=== PATIENT | female | born 1955 | race Caucasian/White ===

== ENCOUNTER 2018-02-20 02:41 | Inpatient (IN) | payer MEDICAID ==
[2018-02-20] MEDS ORDERED: methylPREDNISolone Sodium Succinate 125 MG/2 ML SDV IVPUSH ONE (02:49)
[2018-02-20] MEDS ORDERED: Albuterol/Ipratropium 3.0-0.5 MG/3 ML Neb Soln NEB ONE (02:49)
--- NOTE | 2018-02-20 02:57 | EDM.PDOC ---
ED HPI GENERAL MEDICAL PROBLEM - General Chief Complaint: Respiratory Problem Stated Complaint: CAN'T BREATH Time Seen by Provider: 02/20/18 02:41 Source of Information: Reports: Patient History Limitations: Reports: No Limitations - History of Present Illness INITIAL COMMENTS - FREE TEXT/NARRATIVE: 62-year-old female with oxygen-dependent COPD, was seen a week ago with "bronchitis" and started on an antibiotic. She stopped smoking 12 days ago. She' s had no fevers or chills, she's had worsening shortness of breath and wheezing despite the antibiotic. She is not on any steroids. Nasal cannula oxygen does help but she cannot do anything without oxygen and is short of breath even with the oxygen which is much worse than her baseline. She has marked audible wheezing and moderate increased respiratory rate. She arrived to the emergency room with an O2 saturation of 79% on room air. She has a persistent very tight cough. It is nonproductive. Onset: Gradual (Over the past couple weeks) Severity: Severe Associated Symptoms: Reports: Cough, Shortness of Breath. 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 (see below) (She has inhalers at home, also has been on an antibiotic) - Related Data Allergies Allergy/AdvReac Type Severity Reaction Status Date / Time No Known Allergies Allergy Verified 02/20/18 02:47 Home Meds: Home Meds Albuterol [Ventolin HFA] 1 - 2 puff INH QID 09/14/13 [History] FLUoxetine HCl [Fluoxetine] 40 mg PO DAILY 11/10/13 [History] Acetaminophen [Acetaminophen 8 Hour] 650 mg PO Q6HR PRN 04/03/14 [History] Cyclobenzaprine [Flexeril] 10 mg PO TID PRN 04/03/14 [History] Albuterol/Ipratropium [Combivent] 1 puff INH Q6H PRN 10/02/17 [History] Albuterol/Ipratropium [DuoNeb 3.0-0.5 MG/3 ML] 3 ml INH Q4H PRN 10/02/17 [ History] Fluticasone/Vilanterol [Breo Ellipta 100-25 MCG Inhalation Kit] 1 puff INH DAILY 10/02/17 [History] Gabapentin [Neurontin] 1 cap PO BEDTIME 10/02/17 [History] Ibuprofen [Motrin] 1 tab PO Q6H PRN 10/02/17 [History] Lutein 1 tab PO DAILY 10/02/17 [History] Nicotine [Nicotrol] 1 puff INH Q2HR 10/02/17 [History] Ranitidine [Zantac] 1 tab PO BID 10/02/17 [History] SUMAtriptan [Imitrex] 1 tab PO ASDIRECTED PRN 10/02/17 [History] atorvaSTATin [Lipitor] 1 tab PO BEDTIME 10/02/17 [History] buPROPion [Wellbutrin XL] 1 tab PO DAILY 10/02/17 [History] Amoxicillin 875 mg PO BID 02/20/18 [History] ED ROS GENERAL - Review of Systems Review Of Systems: See Below Constitutional: Reports: Malaise, Weakness. Denies: Fever, Chills HEENT: Reports: No Symptoms Respiratory: Reports: Shortness of Breath, Cough. Denies: Sputum Cardiovascular: Denies: Chest Pain GI/Abdominal: Denies: Abdominal Pain, Nausea, Vomiting Skin: Reports: No Symptoms Neurological: Reports: No Symptoms. Denies: Headache Psychiatric: Reports: No Symptoms ED EXAM, GENERAL - Physical Exam Exam: See Below Exam Limited By: No Limitations General Appearance: Alert, Moderate Distress Head: Atraumatic Respiratory/Chest: Respiratory Distress (Moderate respiratory distress), Wheezing (Widespread inspiratory and expiratory wheezes) Cardiovascular: Regular Rate, Rhythm Extremities: No: Pedal Edema Neurological: Alert, Oriented Psychiatric: Normal Affect, Normal Mood Skin Exam: Warm, Dry Course - Vital Signs Last Recorded V/S: Last Vital Signs Temp 97.0 F 02/20/18 15:54 Pulse 103 H 02/20/18 15:54 Resp 16 02/20/18 15:54 BP 118/67 02/20/18 15:54 Pulse Ox 93 L 02/20/18 15:54 - Orders/Labs/Meds Orders: Active Orders 24 hr Category Date Time Status RT Aerosol Therapy [RC] ASDIRECTED Care 02/20/18 02:49 Active CULTURE RESPIRATORY + SMEAR [RM] Stat Lab 02/20/18 03:38 Ordered Medication Orders Acetaminophen (Tylenol) 650 mg PO Q4H PRN PRN Reason: Pain (Mild 1-3)/fever Albuterol (Proventil Neb Soln) 2.5 mg NEB Q4H PRN PRN Reason: Shortness Of Breath/wheezing Albuterol/Ipratropium (Duoneb 3.0-0.5 Mg/3 Ml) 3 ml NEB QIDRT [facility] Last Admin: 02/20/18 14:47 Dose: 3 ml Admin: 02/20/18 10:47 Dose: 3 ml Admin: 02/20/18 07:43 Dose: 3 ml Atorvastatin Calcium (Lipitor) 10 mg PO BEDTIME [facility] Benzonatate (Tessalon Perles) 200 mg PO TID PRN PRN Reason: Cough Last Admin: 02/20/18 15:55 Dose: 200 mg Bisacodyl (Dulcolax) 5 mg PO DAILY PRN PRN Reason: Constipation Bupropion HCl (Wellbutrin Xl) 300 mg PO DAILY [facility] Last Admin: 02/20/18 09:08 Dose: 300 mg Cyclobenzaprine HCl (Flexeril) 10 mg PO TID PRN PRN Reason: Muscle Spasm Docusate Sodium (Colace) 100 mg PO BID PRN PRN Reason: Constipation Enoxaparin Sodium (Lovenox) 40 mg SUBCUT DAILY [facility] Last Admin: 02/20/18 09:09 Dose: 40 mg Fluoxetine HCl (Prozac) 40 mg PO DAILY [facility] Last Admin: 02/20/18 09:08 Dose: 40 mg Gabapentin (Neurontin) 300 mg PO BEDTIME [facility] Guaifenesin/Codeine Phosphate (Robitussin Ac) 10 ml PO Q4H PRN PRN Reason: Cough Azithromycin 500 mg/ Sodium (Chloride) 250 mls @ 250 mls/hr IV Q24H [facility] Stop: 02/22/18 06:59 Last Admin: 02/20/18 06:45 Dose: 250 mls/hr Ceftriaxone Sodium 1 gm/ (Sodium Chloride) 50 mls @ 200 mls/hr IV Q24H [facility] Stop: 02/27/18 10:30 Last Admin: 02/20/18 09:28 Dose: 200 mls/hr Ibuprofen (Motrin) 600 mg PO Q6H PRN PRN Reason: Pain/Fever Lorazepam (Ativan) 1 mg IV Q6H PRN PRN Reason: Nausea/Vomiting Melatonin (Melatonin) 6 mg PO BEDTIME PRN PRN Reason: Insomnia Methylprednisolone Sodium Succinate (Solu-Medrol) 62.5 mg IV Q6H [facility] Last Admin: 02/20/18 14:56 Dose: 62.5 mg Admin: 02/20/18 09:09 Dose: 62.5 mg Morphine Sulfate (Morphine) 2 mg IVPUSH Q2H PRN PRN Reason: Pain (severe 7-10) Ondansetron HCl (Zofran Odt) 4 mg PO Q6H PRN PRN Reason: Nausea able to take PO Ondansetron HCl (Zofran) 4 mg IV Q4H PRN PRN Reason: Nausea/Vomiting Oxycodone HCl (Oxycodone) 5 mg PO Q4H PRN PRN Reason: Pain (moderate 4-6) Pantoprazole Sodium (Protonix) 40 mg PO ACBREAKFAST [facility] Last Admin: 02/20/18 08:05 Dose: 40 mg Senna/Docusate Sodium (Senna Plus) 1 tab PO BID PRN PRN Reason: Constipation Zolpidem Tartrate (Ambien) 5 mg PO BEDTIME PRN PRN Reason: Sleep Labs: Laboratory Tests 02/20/18 02/20/18 02/20/18 Range/Units 02:50 02:56 03:00 WBC 12.8 H (4.5-11.0) K/uL RBC 4.77 (3.30-5.50) M/uL Hgb 14.7 (12.0-15.0) g/dL Hct 43.4 (36.0-48.0) % MCV 91 (80-98) fL MCH 31 (27-31) pg MCHC 34 (32-36) % Plt Count 438 H (150-400) K/uL Neut % (Auto) 54 (36-66) % Lymph % (Auto) 22 L (24-44) % [place] % (Auto) 13 H (2-6) % Eos % (Auto) 10 H (2-4) % Baso % (Auto) 1 (0-1) % Puncture Site L radial ABG pH 7.382 (7.350-7.450) ABG pCO2 43.6 H (35.0-42.0) mmHg ABG pO2 101.0 H (75.0-100.0) mmHg ABG HCO3 25.3 (22.0-26.0) mmol/L ABG Total CO2 22.3 (21.0-25.0) mmol/L ABG O2 Saturation 97.7 (95.0-98.0) % ABG O2 Content 19.3 (15.0-23.0) %vol ABG Base Excess 0.5 mm/L ABG Hemoglobin 14.1 (12.0-16.0) g/dL ABG Oxyhemoglobin 96.4 % ABG Carboxyhemoglobin 0.8 (0.0-1.6) % ABG Methemoglobin 0.5 % Jeronimo Test Passed O2 Delivery Device Nasal cannula Oxygen Flow Rate 2 L Sodium 135 L (140-148) mmol/L Potassium 4.9 (3.6-5.2) mmol/L Chloride 99 L (100-108) mmol/L Carbon Dioxide 28 (21-32) mmol/L Anion Gap 12.9 (5.0-14.0) mmol/L BUN 6 L (7-18) mg/dL Creatinine 0.8 (0.6-1.0) mg/dL Est Cr Clr Drug Dosing 70.01 mL/min Estimated GFR (MDRD) > 60 (>60) Glucose 123 H (74-106) mg/dL Calcium 9.0 (8.5-10.1) mg/dL Meds: Medications Generic Name Dose Route Start Last Admin Trade Name Freq PRN Reason Stop Dose Admin Acetaminophen 650 mg 02/20/18 05:22 Tylenol PO Q4H PRN Pain (Mild 1-3)/fever Albuterol 2.5 mg 02/20/18 05:22 Proventil Neb Soln NEB Q4H PRN Shortness Of Breath/wheezing Albuterol/Ipratropium 3 ml 02/20/18 07:00 02/20/18 14:47 Duoneb 3.0-0.5 Mg/3 Ml NEB 3 ml QIDRT NILAM Administration Atorvastatin Calcium 10 mg 02/20/18 21:00 Lipitor PO BEDTIME [facility] Benzonatate 200 mg 02/20/18 12:04 02/20/18 15:55 Tessalon Perles PO 200 mg TID PRN Administration Cough Bisacodyl 5 mg 02/20/18 05:22 Dulcolax PO DAILY PRN Constipation Bupropion HCl 300 mg 02/20/18 09:00 02/20/18 09:08 Wellbutrin Xl PO 300 mg DAILY N[facility] Administration Cyclobenzaprine HCl 10 mg 02/20/18 05:22 Flexeril PO TID PRN Muscle Spasm Docusate Sodium 100 mg 02/20/18 05:22 Colace PO BID PRN Constipation Enoxaparin Sodium 40 mg 02/20/18 09:00 02/20/18 09:09 Lovenox SUBCUT 40 mg DAILY [facility] Administration Fluoxetine HCl 40 mg 02/20/18 09:00 02/20/18 09:08 Prozac PO 40 mg DAILY [facility] Administration Gabapentin 300 mg 02/20/18 21:00 Neurontin PO BEDTIME [facility] Guaifenesin/Codeine Phosphate 10 ml 02/20/18 12:04 Robitussin Ac PO Q4H PRN Cough Azithromycin 500 mg/ Sodium 250 mls @ 250 mls/hr 02/20/18 06:00 02/20/18 06: 45 Chloride IV 02/22/18 06:59 250 mls/hr Q24H [facility] Administration Ceftriaxone Sodium 1 gm/ 50 mls @ 200 mls/hr 02/20/18 09:00 02/20/18 09:28 Sodium Chloride IV 02/27/18 10:30 200 mls/hr Q24H [facility] Administration Ibuprofen 600 mg 02/20/18 05:22 Motrin PO Q6H PRN Pain/Fever Lorazepam 1 mg 02/20/18 05:22 Ativan IV Q6H PRN Nausea/Vomiting Melatonin 6 mg 02/20/18 05:22 Melatonin PO BEDTIME PRN Insomnia Methylprednisolone Sodium Succinate 62.5 mg 02/20/18 09:00 02/20/18 14:56 Solu-Medrol IV 62.5 mg Q6H NIL[facility] Administration Morphine Sulfate 2 mg 02/20/18 05:22 Morphine IVPUSH Q2H PRN Pain (severe 7-10) Ondansetron HCl 4 mg 02/20/18 05:22 Zofran Odt PO Q6H PRN Nausea able to take PO Ondansetron HCl 4 mg 02/20/18 05:22 Zofran IV Q4H PRN Nausea/Vomiting Oxycodone HCl 5 mg 02/20/18 05:22 Oxycodone PO Q4H PRN Pain (moderate 4-6) Pantoprazole Sodium 40 mg 02/20/18 07:30 02/20/18 08:05 Protonix PO 40 mg ACBREAKFAST N[facility] Administration Senna/Docusate Sodium 1 tab 02/20/18 05:22 Senna Plus PO BID PRN Constipation Zolpidem Tartrate 5 mg 02/20/18 05:22 Ambien PO BEDTIME PRN Sleep Discontinued Medications Generic Name Dose Route Start Last Admin Trade Name Christopherq PRN Reason Stop Dose Admin Albuterol 2.5 mg 02/20/18 03:48 02/20/18 03:52 Proventil Neb Soln NEB 02/20/18 03:49 2.5 mg ONETIME ONE Administration Albuterol/Ipratropium 3 ml 02/20/18 02:49 02/20/18 03:00 Duoneb 3.0-0.5 Mg/3 Ml NEB 02/20/18 02:50 3 ml ONETIME ONE Administration Guaifenesin/Codeine Phosphate 10 ml 02/20/18 04:45 02/20/18 04:59 Robitussin Ac PO 10 ml Q6H [facility]IL[facility] Administration Guaifenesin/Codeine Phosphate 10 ml 02/20/18 10:00 02/20/18 10:53 Robitussin Ac PO 10 ml Q6H NIL[facility] Administration Ceftriaxone Sodium 1 gm/ 50 mls @ 200 mls/hr 02/20/18 05:30 02/20/18 08:30 Sodium Chloride IV 02/27/18 05:31 Not Given Q24H NILAM Sodium Chloride 1,000 mls @ 125 mls/hr 02/20/18 05:22 Normal Saline IV ASDIRECTED NILAM Sodium Chloride Confirm 02/20/18 06:32 02/20/18 06:45 Normal Saline Administered 02/20/18 06:33 Not Given Dose 250 mls @ as directed .ROUTE .STK-MED ONE Lorazepam 1 mg 02/20/18 04:14 02/20/18 04:59 Ativan IVPUSH 02/20/18 04:15 1 mg ONETIME ONE Administration Methylprednisolone Sodium Succinate 125 mg 02/20/18 02:49 02/20/18 03:00 Solu-Medrol IVPUSH 02/20/18 02:50 125 mg ONETIME ONE Administration - Re-Assessments/Exams Free Text/Narrative Re-Assessment/Exam: 02/20/18 02:57 Patient was given an urgent DuoNeb, CBC, BMP and ABGs were obtained while the patient was on 2 L of nasal cannula oxygen. Her O2 saturations did improve to 92 % while on the oxygen. An IV was started and she was given 125 mg of Solu-Medrol , and a two-view chest x-ray obtained. 02/20/18 03:31 Two-view chest x-ray showed no infiltrate but stable rather severe hyperinflation. After the DuoNeb and while on the oxygen her O2 saturations remained in the low to mid 90s and she felt slightly better but still was laboring. Blood gases showed a CO2 of 43.5, the rest normal. The rest of her labs are reassuring. I asked Saima Gilman of the hospitalist service to assess the patient for admission, I think she needs at least 1-2 days of IV steroids and frequent nebulizer treatments. Departure - Departure Time of Disposition: 05:52 Disposition: Admitted As Inpatient 68 Condition: Fair Clinical Impression: COPD with acute exacerbation, Hypoxemia - Discharge Information - My Orders Last 24 Hours: My Active Orders 02/20/18 02:49 RT Aerosol Therapy [RC] ASDIRECTED 02/20/18 03:38 CULTURE RESPIRATORY + SMEAR [RM] Stat - Assessment/Plan Last 24 Hours: My Active Orders 02/20/18 02:49 RT Aerosol Therapy [RC] ASDIRECTED 02/20/18 03:38 CULTURE RESPIRATORY + SMEAR [RM] Stat
[2018-02-20] MEDS ORDERED: Albuterol 0.083% 2.5 MG/3 ML Neb Soln NEB ONE (03:48)
[2018-02-20] MEDS ORDERED: LORazepam 2 MG/ML SDV IVPUSH ONE (04:14)
--- NOTE | 2018-02-20 04:37 | PCM.HP ---
H&P History of Present Illness - General Admit Problem/Dx: Admission Diagnosis/Problem Admission Diagnosis/Problem COPD, Severe chronic obstructive pulmonary disease Source of Information: Patient History Limitations: Reports: No Limitations - History of Present Illness Initial Comments - Free Text/Narative: 62-year-old female with oxygen-dependent COPD, was seen a week ago with "bronchitis" and started on an antibiotic. She stopped smoking 12 days ago. She' s had no fevers or chills, she's had worsening shortness of breath and wheezing despite the antibiotic. She is not on any steroids. Nasal cannula oxygen does help but she cannot do anything without oxygen and is short of breath even with the oxygen which is much worse than her baseline. She has marked audible wheezing and moderate increased respiratory rate. She arrived to the emergency room with an O2 saturation of 79% on room air. She has a persistent very tight cough. It is nonproductive. Onset: Gradual (Over the past couple weeks) Severity: Severe Associated Symptoms: Reports: Cough, Shortness of Breath. 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 INDUSTRIAL ENG: Reports: Other (see below) (She has inhalers at home, also has been on an antibiotic) - Related Data Allergies Onset of Symptoms: Reports: Gradual Duration of Symptoms: Reports: Day(s): (9), Getting Worse Location: Reports: Chest Quality: Reports: Burning, Sharp Severity: Severe Improves with: Reports: None Worsens with: Reports: Breathing, Movement Context: Reports: Other (hx of COPD, quit smoking 12 days ago, had bronchitis 9 days ago, treated with Augmentin. didn't improve, now with uncontrolled cough and sob) Associated Symptoms: Reports: Cough, Shortness of Breath, Weakness - Related Data Allergies/Adverse Reactions: Allergies Allergy/AdvReac Type Severity Reaction Status Date / Time No Known Allergies Allergy Verified 02/20/18 02:47 Home Medications: Home Meds Albuterol [Ventolin HFA] 1 - 2 puff INH QID 09/14/13 [History] FLUoxetine HCl [Fluoxetine] 40 mg PO DAILY 11/10/13 [History] Acetaminophen [Acetaminophen 8 Hour] 650 mg PO Q6HR PRN 04/03/14 [History] Cyclobenzaprine [Flexeril] 10 mg PO TID PRN 04/03/14 [History] Albuterol/Ipratropium [Combivent] 1 puff INH Q6H PRN 10/02/17 [History] Albuterol/Ipratropium [DuoNeb 3.0-0.5 MG/3 ML] 3 ml INH Q4H PRN 10/02/17 [ History] Fluticasone/Vilanterol [Breo Ellipta 100-25 MCG Inhalation Kit] 1 puff INH DAILY 10/02/17 [History] Gabapentin [Neurontin] 1 cap PO BEDTIME 10/02/17 [History] Ibuprofen [Motrin] 1 tab PO Q6H PRN 10/02/17 [History] Lutein 1 tab PO DAILY 10/02/17 [History] Nicotine [Nicotrol] 1 puff INH Q2HR 10/02/17 [History] Ranitidine [Zantac] 1 tab PO BID 10/02/17 [History] SUMAtriptan [Imitrex] 1 tab PO ASDIRECTED PRN 10/02/17 [History] atorvaSTATin [Lipitor] 1 tab PO BEDTIME 10/02/17 [History] buPROPion [Wellbutrin XL] 1 tab PO DAILY 10/02/17 [History] Amoxicillin 875 mg PO BID 02/20/18 [History] Past Medical History HEENT History: Reports: Cataract Respiratory History: Reports: Bronchitis, Recurrent, COPD Musculoskeletal History: Reports: Arthritis, Other (See Below) Other Musculoskeletal History: bilateral shoulder dislocation Neurological History: Reports: Migraines Psychiatric History: Reports: Depression - Infectious Disease History Infectious Disease History: Reports: Chicken Pox, Mumps - Past Surgical History HEENT Surgical History: Reports: Tonsillectomy Female Surgical History: Reports: Tubal Ligation Social & Family History - Tobacco Use Smoking Status *Q: Former Smoker Years of Tobacco use: 43 Packs/Tins Daily: 0.5 Used Tobacco, but Quit: Yes Month/Year Tobacco Last Used: February 2018 - Caffeine Use Caffeine Use: Reports: Coffee, Tea - Recreational Drug Use Recreational Drug Use: No - Living Situation & Occupation Living situation: Reports: Single Occupation: Employed (lives in [place], [place]. employed by [employer]. has one child) H&P Review of Systems - Review of Systems: Review Of Systems: See Below General: Reports: Fatigue HEENT: Reports: Sinus Congestion, Sore Throat Pulmonary: Reports: Shortness of Breath, Wheezing, Pleuritic Chest Pain, Cough, Sputum (sent for culture) Cardiovascular: Reports: No Symptoms Gastrointestinal: Reports: No Symptoms Genitourinary: Reports: No Symptoms Musculoskeletal: Reports: No Symptoms Skin: Reports: No Symptoms Psychiatric: Reports: No Symptoms Neurological: Reports: No Symptoms Hematologic/Lymphatic: Reports: No Symptoms Immunologic: Reports: No Symptoms Exam - Exam Exam: See Below - Vital Signs Vital Signs: Last Vital Signs Temp 36.9 C 02/20/18 02:49 Pulse 118 H 02/20/18 03:17 Resp 24 H 02/20/18 03:17 BP 115/75 02/20/18 03:17 Pulse Ox 93 L 02/20/18 03:17 Weight: 77.8 kg - Exam Quality Assessment: Supplemental Oxygen, DVT Prophylaxis General: Alert, Oriented, Cooperative, Moderate Distress HEENT: PERRLA, Hearing Intact, Mucosa Moist & [place], Nares Patent, Normal Nasal Septum, Posterior Pharynx Clear, Conjunctiva Clear, EOMI, EACs Clear, TMs Clear Neck: Supple, Trachea Midline, 2 Lungs: Decreased Breath Sounds, Rhonchi, Wheezing Cardiovascular: Regular Rate, Regular Rhythm, Normal S1, Normal S2 GI/Abdominal Exam: Normal Bowel Sounds, Soft, Non-Tender, No Organomegaly, No Distention, No Abnormal Bruit, No Mass, Pelvis Stable Back Exam: Normal Inspection Extremities: Normal Inspection, Normal Range of Motion, Non-Tender, No Pedal Edema, Normal Capillary Refill Peripheral Pulses: 2+: Dorsalis Pedis (L), Dorsalis Pedis (R) Skin: Warm, Dry, Intact Neurological: Cranial Nerves Intact, Reflexes Equal Bilateral Neuro Extensive - Mental Status: Alert, Oriented x3, Normal Mood/Affect, Normal Cognition Neuro Extensive - Motor, Sensory, Reflexes: CN II-XII Intact, Normal Gait, Normal Reflexes Psychiatric: Alert, Normal Affect, Normal Mood - Patient Data Lab Results Last 24 hrs: Laboratory Results - last 24 hr 02/20/18 02/20/18 02/20/18 Range/Units 02:50 02:56 03:00 WBC 12.8 H (4.5-11.0) K/uL RBC 4.77 (3.30-5.50) M/uL Hgb 14.7 (12.0-15.0) g/dL Hct 43.4 (36.0-48.0) % MCV 91 (80-98) fL MCH 31 (27-31) pg MCHC 34 (32-36) % Plt Count 438 H (150-400) K/uL Neut % (Auto) 54 (36-66) % Lymph % (Auto) 22 L (24-44) % [place]abella % (Auto) 13 H (2-6) % Eos % (Auto) 10 H (2-4) % Baso % (Auto) 1 (0-1) % Puncture Site L radial ABG pH 7.382 (7.350-7.450) ABG pCO2 43.6 H (35.0-42.0) mmHg ABG pO2 101.0 H (75.0-100.0) mmHg ABG HCO3 25.3 (22.0-26.0) mmol/L ABG Total CO2 22.3 (21.0-25.0) mmol/L ABG O2 Saturation 97.7 (95.0-98.0) % ABG O2 Content 19.3 (15.0-23.0) %vol ABG Base Excess 0.5 mm/L ABG Hemoglobin 14.1 (12.0-16.0) g/dL ABG Oxyhemoglobin 96.4 % ABG Carboxyhemoglobin 0.8 (0.0-1.6) % ABG Methemoglobin 0.5 % Jeronimo Test Passed O2 Delivery Device Nasal cannula Oxygen Flow Rate 2 L Sodium 135 L (140-148) mmol/L Potassium 4.9 (3.6-5.2) mmol/L Chloride 99 L (100-108) mmol/L Carbon Dioxide 28 (21-32) mmol/L Anion Gap 12.9 (5.0-14.0) mmol/L BUN 6 L (7-18) mg/dL Creatinine 0.8 (0.6-1.0) mg/dL Est Cr Clr Drug Dosing 70.01 mL/min Estimated GFR (MDRD) > 60 (>60) Glucose 123 H (74-106) mg/dL Calcium 9.0 (8.5-10.1) mg/dL Result Diagrams: 02/20/18 02:56 02/20/18 02:50 - Problem List (1) Tobacco smoker within last 12 months SNOMED Code(s): 658772495 ICD Code: F17.200 - NICOTINE DEPENDENCE, UNSPECIFIED, UNCOMPLICATED Status : Acute Priority: High Current Visit: Yes (2) COPD with acute exacerbation SNOMED Code(s): 044922996 ICD Code: J44.1 - CHRONIC OBSTRUCTIVE PULMONARY DISEASE W (ACUTE) EXACERBATION Status: Acute Priority: High Current Visit: Yes Problem List Initiated/Reviewed/Updated: Yes Orders Last 24hrs: Active Orders 24 hr Category Date Time Status Patient Status Manage Transfer [TRANSFER] Routine ADT 02/20/18 04:15 Active RT Aerosol Therapy [RC] ASDIRECTED Care 02/20/18 02:49 Active RT Aerosol Therapy [RC] ASDIRECTED Care 02/20/18 03:48 Active Chest 2V [CR] Routine Exams 02/20/18 02:48 Taken CULTURE RESPIRATORY + SMEAR [RM] Stat Lab 02/20/18 03:38 Ordered Resuscitation Status Routine Resus Stat 02/20/18 04:20 Ordered Assessment/Plan Comment:: ASSESSMENT / PLAN 62-year-old female with oxygen-dependent COPD, was seen a week ago with "bronchitis" and started on an antibiotic. She stopped smoking 12 days ago. She' s had no fevers or chills, she's had worsening shortness of breath and wheezing despite the antibiotic. She is not on any steroids. Nasal cannula oxygen does help but she cannot do anything without oxygen and is short of breath even with the oxygen which is much worse than her baseline. She has marked audible wheezing and moderate increased respiratory rate. She arrived to the emergency room with an O2 saturation of 79% on room air. She has a persistent very tight cough. It is nonproductive. Onset: Gradual (Over the past couple weeks) Severity: Severe Associated Symptoms: Reports: Cough, Shortness of Breath. 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 INDUSTRIAL ENG: Reports: Other (see below) (She has inhalers at home, also has been on an antibiotic) due to continued cough and wheezing, will admit to hospital for further care and treatment. COPD with exacerbatiion -Admit to [address] [place] [address] for further monitoring -IV Fluids for rehydration NS at 125 mL per hour -IV Antibiotic: Zithromax 500 gram IV every 24 hours -IV Antibiotic: Rocephin 1 gm IV every 24 hours -IV Solumederol 62.5mg every 6 hours -Robitussin AC 10 ml every 6 hours for cough -albuterol nebulizer every 4 hours as needed for wheezing and cough -Duo nebu ; schedule nebulize every 6 hours -Advise to notify nurses of any chest pain or other symptoms -IS every 1 hour while awake Tobacco Dependence, quit -quit smoking x 12 days -decline nicotine patches or pill Maintenance issues -Orders home meds: -Nutrition: regular diet -Churchill catheter not indicated at this time -DVT: Lovenox 40 mg subcut -PPI: po Protonix 40mg daily CODE STATUS: FULL CODE Admission status: Admit to [address] [place] [address] Admission justification. This patient will be admitted for inpatient services and is medically appropriate meeting medical necessity for inpatient admission as outlined in my documentation. I reasonably expect the patient will require inpatient services that span. Time over 2 midnights. I reasonably expect this patient to be discharged or transferred within 96 hours after admission to the [facility]. Disposition: home Primary care provider: Dr. Vásquez Hospitalist: Dr. Patten
[2018-02-20] MEDS ORDERED: Codeine/guaiFENesin 100mg-10 MG/5 ML Syrup 10 ML Cup PO SCH ×2 (04:45→10:00)
[2018-02-20] MEDS ORDERED: Sodium Chloride 0.9% 1,000 ML IV SCH (05:22)
[2018-02-20] MEDS ORDERED: oxyCODONE 5 MG Tab PO PRN (05:22)
[2018-02-20] MEDS ORDERED: Acetaminophen 325 MG Tab PO PRN (05:22)
[2018-02-20] MEDS ORDERED: LORazepam 2 MG/ML SDV IV PRN (05:22)
[2018-02-20] MEDS ORDERED: Morphine 2 MG/ML Syringe IVPUSH PRN (05:22)
[2018-02-20] MEDS ORDERED: Zolpidem 5 MG Tab PO PRN (05:22)
[2018-02-20] MEDS ORDERED: Ondansetron 4 MG/2 ML SDV IV PRN (05:22)
[2018-02-20] MEDS ORDERED: Melatonin 3 MG Tab PO PRN (05:22)
[2018-02-20] MEDS ORDERED: Docusate Sodium 100 MG Cap PO PRN (05:22)
[2018-02-20] MEDS ORDERED: Cyclobenzaprine 10 MG Tab PO PRN (05:22)
[2018-02-20] MEDS ORDERED: Bisacodyl 5 MG Tab PO PRN (05:22)
[2018-02-20] MEDS ORDERED: Ondansetron 4 MG Tab.DIS PO PRN (05:22)
[2018-02-20] MEDS ORDERED: Sodium Chloride 0.9% 250 ML ONE (06:32)
[2018-02-20] MEDS: cefTRIAXone 1 GM in Sodium Chloride 0.9% 50 ML IV SCH ×3 (06:44→09:28)
[2018-02-20] MEDS: Azithromycin 500 MG in Sodium Chloride 0.9% 250 ML IV SCH (06:45)
[2018-02-20] MEDS: Albuterol/Ipratropium 3.0-0.5 MG/3 ML Neb Soln NEB SCH ×4 (07:43→20:56)
[2018-02-20] MEDS: Pantoprazole 40 MG Tab.CR PO SCH (08:05)
[2018-02-20] MEDS: buPROPion 150 MG Tab.ER PO SCH (09:08)
[2018-02-20] MEDS: FLUoxetine 20 MG Cap PO SCH (09:08)
[2018-02-20] MEDS: Enoxaparin 40 MG/0.4 ML Syringe SUBCUT SCH (09:09)
[2018-02-20] MEDS: methylPREDNISolone Sodium Succinate 125 MG/2 ML SDV IV SCH ×3 (09:09→20:58)
--- NOTE | 2018-02-20 09:34 | CR ---
Two-view chest Comparison: July 2017. There is hyperinflation consistent with COPD. The heart and vascular structures are stable. There are no infiltrates or effusions. There are chronic posterior left lower rib fractures. Impression: 1. COPD. 2. No acute findings.
--- NOTE | 2018-02-20 12:09 | PCM.PN ---
- General Info Date of Service: 02/20/18 Subjective Update: Ms. Lynn is a 62-year-old woman who is admitted through the emergency department with hypoxia and COPD exacerbation secondary to underlying bronchitis. Symptoms of been present over the past 10 days and she has failed a course of oral outpatient antibiotic therapy. Continues to experience significant cough and intermittent hypoxia mainly related to the cough. - Review of Systems General: Reports: Weakness. Denies: Fever, Chills Pulmonary: Reports: Shortness of Breath, Cough, Wheezing. Denies: Sputum, Hemoptysis Cardiovascular: Reports: Dyspnea on Exertion. Denies: Chest Pain, Palpitations , Orthopnea, PND, Edema Gastrointestinal: Reports: No Symptoms - Patient Data Vitals - Most Recent: Last Vital Signs Temp 97.0 F 02/20/18 11:41 Pulse 102 H 02/20/18 11:41 Resp 16 02/20/18 11:41 BP 130/76 02/20/18 11:41 Pulse Ox 94 L 02/20/18 11:41 Weight - Most Recent: 171 lb 8.314 oz I&O - Last 24 Hours: Intake & Output 02/19/18 02/20/18 02/20/18 22:59 06:59 14:59 Intake Total 120 50 Output Total 0 Balance 120 50 Lab Results Last 24 Hours: Laboratory Results - last 24 hr 02/20/18 02/20/18 02/20/18 Range/Units 02:50 02:56 03:00 WBC 12.8 H (4.5-11.0) K/uL RBC 4.77 (3.30-5.50) M/uL Hgb 14.7 (12.0-15.0) g/dL Hct 43.4 (36.0-48.0) % MCV 91 (80-98) fL MCH 31 (27-31) pg MCHC 34 (32-36) % Plt Count 438 H (150-400) K/uL Neut % (Auto) 54 (36-66) % Lymph % (Auto) 22 L (24-44) % Sawyer % (Auto) 13 H (2-6) % Eos % (Auto) 10 H (2-4) % Baso % (Auto) 1 (0-1) % Puncture Site L radial ABG pH 7.382 (7.350-7.450) ABG pCO2 43.6 H (35.0-42.0) mmHg ABG pO2 101.0 H (75.0-100.0) mmHg ABG HCO3 25.3 (22.0-26.0) mmol/L ABG Total CO2 22.3 (21.0-25.0) mmol/L ABG O2 Saturation 97.7 (95.0-98.0) % ABG O2 Content 19.3 (15.0-23.0) %vol ABG Base Excess 0.5 mm/L ABG Hemoglobin 14.1 (12.0-16.0) g/dL ABG Oxyhemoglobin 96.4 % ABG Carboxyhemoglobin 0.8 (0.0-1.6) % ABG Methemoglobin 0.5 % Jeronimo Test Passed O2 Delivery Device Nasal cannula Oxygen Flow Rate 2 L Sodium 135 L (140-148) mmol/L Potassium 4.9 (3.6-5.2) mmol/L Chloride 99 L (100-108) mmol/L Carbon Dioxide 28 (21-32) mmol/L Anion Gap 12.9 (5.0-14.0) mmol/L BUN 6 L (7-18) mg/dL Creatinine 0.8 (0.6-1.0) mg/dL Est Cr Clr Drug Dosing 70.01 mL/min Estimated GFR (MDRD) > 60 (>60) Glucose 123 H (74-106) mg/dL Calcium 9.0 (8.5-10.1) mg/dL Darío Results Last 24 Hours: Microbiology 02/20/18 03:38 Gram Stain - Final Sputum - Expectorated Med Orders - Current: Current Medications Acetaminophen (Tylenol) 650 mg PO Q4H PRN PRN Reason: Pain (Mild 1-3)/fever Albuterol (Proventil Neb Soln) 2.5 mg NEB Q4H PRN PRN Reason: Shortness Of Breath/wheezing Albuterol/Ipratropium (Duoneb 3.0-0.5 Mg/3 Ml) 3 ml NEB QIDRT NILAM Last Admin: 02/20/18 10:47 Dose: 3 ml Atorvastatin Calcium (Lipitor) 10 mg PO BEDTIME NILAM Benzonatate (Tessalon Perles) 200 mg PO TID PRN PRN Reason: Cough Bisacodyl (Dulcolax) 5 mg PO DAILY PRN PRN Reason: Constipation Bupropion HCl (Wellbutrin Xl) 300 mg PO DAILY [facility] Last Admin: 02/20/18 09:08 Dose: 300 mg Cyclobenzaprine HCl (Flexeril) 10 mg PO TID PRN PRN Reason: Muscle Spasm Docusate Sodium (Colace) 100 mg PO BID PRN PRN Reason: Constipation Enoxaparin Sodium (Lovenox) 40 mg SUBCUT DAILY [facility] Last Admin: 02/20/18 09:09 Dose: 40 mg Fluoxetine HCl (Prozac) 40 mg PO DAILY [facility] Last Admin: 02/20/18 09:08 Dose: 40 mg Gabapentin (Neurontin) 300 mg PO BEDTIME [facility] Guaifenesin/Codeine Phosphate (Robitussin Ac) 10 ml PO Q4H PRN PRN Reason: Cough Azithromycin 500 mg/ Sodium (Chloride) 250 mls @ 250 mls/hr IV Q24H [facility] Stop: 02/22/18 06:59 Last Admin: 02/20/18 06:45 Dose: 250 mls/hr Ceftriaxone Sodium 1 gm/ (Sodium Chloride) 50 mls @ 200 mls/hr IV Q24H [facility] Stop: 02/27/18 10:30 Last Admin: 02/20/18 09:28 Dose: 200 mls/hr Ibuprofen (Motrin) 600 mg PO Q6H PRN PRN Reason: Pain/Fever Lorazepam (Ativan) 1 mg IV Q6H PRN PRN Reason: Nausea/Vomiting Melatonin (Melatonin) 6 mg PO BEDTIME PRN PRN Reason: Insomnia Methylprednisolone Sodium Succinate (Solu-Medrol) 62.5 mg IV Q6H [facility] Last Admin: 02/20/18 09:09 Dose: 62.5 mg Morphine Sulfate (Morphine) 2 mg IVPUSH Q2H PRN PRN Reason: Pain (severe 7-10) Ondansetron HCl (Zofran Odt) 4 mg PO Q6H PRN PRN Reason: Nausea able to take PO Ondansetron HCl (Zofran) 4 mg IV Q4H PRN PRN Reason: Nausea/Vomiting Oxycodone HCl (Oxycodone) 5 mg PO Q4H PRN PRN Reason: Pain (moderate 4-6) Pantoprazole Sodium (Protonix) 40 mg PO ACBREAKFAST [facility] Last Admin: 02/20/18 08:05 Dose: 40 mg Senna/Docusate Sodium (Senna Plus) 1 tab PO BID PRN PRN Reason: Constipation Zolpidem Tartrate (Ambien) 5 mg PO BEDTIME PRN PRN Reason: Sleep Discontinued Medications Albuterol (Proventil Neb Soln) 2.5 mg NEB ONETIME ONE Stop: 02/20/18 03:49 Last Admin: 02/20/18 03:52 Dose: 2.5 mg Albuterol/Ipratropium (Duoneb 3.0-0.5 Mg/3 Ml) 3 ml NEB ONETIME ONE Stop: 02/20/18 02:50 Last Admin: 02/20/18 03:00 Dose: 3 ml Guaifenesin/Codeine Phosphate (Robitussin Ac) 10 ml PO Q6H [facility] Last Admin: 02/20/18 04:59 Dose: 10 ml Guaifenesin/Codeine Phosphate (Robitussin Ac) 10 ml PO Q6H [facility] Last Admin: 02/20/18 10:53 Dose: 10 ml Ceftriaxone Sodium 1 gm/ (Sodium Chloride) 50 mls @ 200 mls/hr IV Q24H [facility] Stop: 02/27/18 05:31 Last Admin: 02/20/18 08:30 Dose: Not Given Sodium Chloride (Normal Saline) 1,000 mls @ 125 mls/hr IV ASDIRECTED [facility] Sodium Chloride (Normal Saline) Confirm Administered Dose 250 mls @ as directed .ROUTE .STK-MED ONE Stop: 02/20/18 06:33 Last Admin: 02/20/18 06:45 Dose: Not Given Lorazepam (Ativan) 1 mg IVPUSH ONETIME ONE Stop: 02/20/18 04:15 Last Admin: 02/20/18 04:59 Dose: 1 mg Methylprednisolone Sodium Succinate (Solu-Medrol) 125 mg IVPUSH ONETIME ONE Stop: 02/20/18 02:50 Last Admin: 02/20/18 03:00 Dose: 125 mg - Exam Quality Assessment: Supplemental Oxygen, DVT Prophylaxis General: Alert, Oriented, Cooperative, Moderate Distress Lungs: Decreased Breath Sounds, Wheezing. No: Rales, Rhonchi, Rub Cardiovascular: Regular Rate, Regular Rhythm, No Murmurs GI/Abdominal Exam: Soft, Non-Tender, No Organomegaly, No Distention Extremities: Non-Tender, No Pedal Edema Skin: Warm, Dry, Intact - Problem List Review Problem List Initiated/Reviewed/Updated: Yes - My Orders Last 24 Hours: My Active Orders 02/20/18 12:04 Benzonatate [Tessalon Perles] 200 mg PO TID PRN Codeine/guaiFENesin [Robitussin AC] 10 ml PO Q4H PRN Convert IV to Saline Lock [OM.PC] Routine - Plan Plan:: ASSESSMENT / PLAN COPD with exacerbatiion secondary to bronchitis -Saline lock IV -IV Antibiotic: Zithromax 500 gram IV every 24 hours -IV Antibiotic: Rocephin 1 gm IV every 24 hours -IV Solumederol 62.5mg every 6 hours -Robitussin AC 10 ml every 4 hours as needed for cough -Tessalon pearls 200 mg by mouth 3 times a day when necessary -albuterol nebulizer every 4 hours as needed for wheezing and cough -Duo nebu ; schedule nebulize every 6 hours -IS every 1 hour while awake Acute on chronic hypoxic respiratory failure -Secondary to bronchitis and COPD exacerbation Tobacco Dependence, quit -quit smoking x 12 days -decline nicotine patches or pill Maintenance issues -Orders home meds: -Nutrition: regular diet -Churchill catheter not indicated at this time -DVT: Lovenox 40 mg subcut -PPI: po Protonix 40mg daily CODE STATUS: FULL CODE Admission status: Admit to [address] [place] [address] Admission justification. This patient will be admitted for inpatient services and is medically appropriate meeting medical necessity for inpatient admission as outlined in my documentation. I reasonably expect the patient will require inpatient services that span. Time over 2 midnights. I reasonably expect this patient to be discharged or transferred within 96 hours after admission to the [facility]. Disposition: home Primary care provider: Dr. Vásquez Hospitalist: Dr. Patten
[2018-02-20] MEDS: Benzonatate 100 MG Cap PO PRN (15:55)
[2018-02-20] MEDS: Ibuprofen 600 MG Tab PO PRN (19:40)
[2018-02-20] MEDS: atorvaSTATin 10 MG Tab PO SCH (20:57)
[2018-02-20] MEDS: Gabapentin 300 MG Cap PO SCH (20:58)
[2018-02-21] MEDS: methylPREDNISolone Sodium Succinate 125 MG/2 ML SDV IV SCH ×2 (03:09→08:35)
[2018-02-21] MEDS: Benzonatate 100 MG Cap PO PRN (05:21)
[2018-02-21] MEDS: Azithromycin 500 MG in Sodium Chloride 0.9% 250 ML IV SCH (05:22)
[2018-02-21] MEDS: Albuterol 0.083% 2.5 MG/3 ML Neb Soln NEB PRN (05:27)
[2018-02-21] MEDS: Codeine/guaiFENesin 100mg-10 MG/5 ML Syrup 10 ML Cup PO PRN ×2 (05:59→14:18)
[2018-02-21] MEDS: Pantoprazole 40 MG Tab.CR PO SCH (07:21)
[2018-02-21] MEDS: Albuterol/Ipratropium 3.0-0.5 MG/3 ML Neb Soln NEB SCH ×4 (07:39→20:23)
[2018-02-21] MEDS: Enoxaparin 40 MG/0.4 ML Syringe SUBCUT SCH (08:33)
[2018-02-21] MEDS: FLUoxetine 20 MG Cap PO SCH (08:33)
[2018-02-21] MEDS: cefTRIAXone 1 GM in Sodium Chloride 0.9% 50 ML IV SCH (08:34)
[2018-02-21] MEDS: buPROPion 150 MG Tab.ER PO SCH (08:35)
--- NOTE | 2018-02-21 12:14 | PCM.PN ---
- General Info Date of Service: 02/21/18 Subjective Update: Ms. Lynn has noted further modest improvement in shortness of breath over the past 24 hours. Cough seems to be improved and she is no longer short of breath at rest or with speaking. Continues to develop shortness of breath with relatively minimal exertion. Functional Status: Reports: Pain Controlled, Tolerating Diet, Urinating - Review of Systems General: Reports: Weakness. Denies: Fever, Chills Pulmonary: Reports: Shortness of Breath, Cough, Sputum, Wheezing. Denies: Pleuritic Chest Pain, Hemoptysis Cardiovascular: Reports: Dyspnea on Exertion. Denies: Chest Pain, Palpitations , Orthopnea, PND, Edema Gastrointestinal: Reports: No Symptoms - Patient Data Vitals - Most Recent: Last Vital Signs Temp 97.4 F 02/21/18 11:10 Pulse 118 H 02/21/18 11:10 Resp 22 H 02/21/18 07:17 BP 139/73 02/21/18 11:10 Pulse Ox 91 L 02/21/18 11:10 Weight - Most Recent: 171 lb 8.314 oz I&O - Last 24 Hours: Intake & Output 02/20/18 02/21/18 02/21/18 22:59 06:59 14:59 Intake Total 834 [id number] [id number] Balance 286 639 2286 Darío Results Last 24 Hours: Microbiology 02/20/18 03:38 Gram Stain - Final Sputum - Expectorated Respiratory Culture - Preliminary NORMAL RESPIRATORY PAGE 1 DAY Med Orders - Current: Current Medications Acetaminophen (Tylenol) 650 mg PO Q4H PRN PRN Reason: Pain (Mild 1-3)/fever Last Admin: 02/20/18 20:27 Dose: 650 mg Albuterol (Proventil Neb Soln) 2.5 mg NEB Q4H PRN PRN Reason: Shortness Of Breath/wheezing Last Admin: 02/21/18 05:27 Dose: 2.5 mg Albuterol/Ipratropium (Duoneb 3.0-0.5 Mg/3 Ml) 3 ml NEB QIDRT NILAM Last Admin: 02/21/18 10:50 Dose: 3 ml Atorvastatin Calcium (Lipitor) 10 mg PO BEDTIME [facility] Last Admin: 02/20/18 20:57 Dose: 10 mg Benzonatate (Tessalon Perles) 200 mg PO TID PRN PRN Reason: Cough Last Admin: 02/21/18 05:21 Dose: 200 mg Bisacodyl (Dulcolax) 5 mg PO DAILY PRN PRN Reason: Constipation Bupropion HCl (Wellbutrin Xl) 300 mg PO DAILY [facility] Last Admin: 02/21/18 08:35 Dose: 300 mg Cyclobenzaprine HCl (Flexeril) 10 mg PO TID PRN PRN Reason: Muscle Spasm Docusate Sodium (Colace) 100 mg PO BID PRN PRN Reason: Constipation Enoxaparin Sodium (Lovenox) 40 mg SUBCUT DAILY [facility] Last Admin: 02/21/18 08:33 Dose: 40 mg Fluoxetine HCl (Prozac) 40 mg PO DAILY [facility] Last Admin: 02/21/18 08:33 Dose: 40 mg Gabapentin (Neurontin) 300 mg PO BEDTIME [facility] Last Admin: 02/20/18 20:58 Dose: 300 mg Guaifenesin/Codeine Phosphate (Robitussin Ac) 10 ml PO Q4H PRN PRN Reason: Cough Last Admin: 02/21/18 05:59 Dose: 10 ml Ceftriaxone Sodium 1 gm/ (Sodium Chloride) 50 mls @ 200 mls/hr IV Q24H [facility] Stop: 02/27/18 10:30 Last Admin: 02/21/18 08:34 Dose: 200 mls/hr Azithromycin 500 mg/ Sodium (Chloride) 250 mls @ 250 mls/hr IV Q24H [facility] Stop: 02/22/18 06:59 Ibuprofen (Motrin) 600 mg PO Q6H PRN PRN Reason: Pain/Fever Last Admin: 02/20/18 19:40 Dose: 600 mg Lorazepam (Ativan) 1 mg IV Q6H PRN PRN Reason: Nausea/Vomiting Melatonin (Melatonin) 6 mg PO BEDTIME PRN PRN Reason: Insomnia Methylprednisolone Sodium Succinate (Solu-Medrol) 40 mg IV Q8H [facility] Morphine Sulfate (Morphine) 2 mg IVPUSH Q2H PRN PRN Reason: Pain (severe 7-10) Ondansetron HCl (Zofran Odt) 4 mg PO Q6H PRN PRN Reason: Nausea able to take PO Ondansetron HCl (Zofran) 4 mg IV Q4H PRN PRN Reason: Nausea/Vomiting Oxycodone HCl (Oxycodone) 5 mg PO Q4H PRN PRN Reason: Pain (moderate 4-6) Pantoprazole Sodium (Protonix) 40 mg PO ACBREAKFAST [facility] Last Admin: 02/21/18 07:21 Dose: 40 mg Senna/Docusate Sodium (Senna Plus) 1 tab PO BID PRN PRN Reason: Constipation Zolpidem Tartrate (Ambien) 5 mg PO BEDTIME PRN PRN Reason: Sleep Discontinued Medications Albuterol (Proventil Neb Soln) 2.5 mg NEB ONETIME ONE Stop: 02/20/18 03:49 Last Admin: 02/20/18 03:52 Dose: 2.5 mg Albuterol/Ipratropium (Duoneb 3.0-0.5 Mg/3 Ml) 3 ml NEB ONETIME ONE Stop: 02/20/18 02:50 Last Admin: 02/20/18 03:00 Dose: 3 ml Guaifenesin/Codeine Phosphate (Robitussin Ac) 10 ml PO Q6H [facility] Last Admin: 02/20/18 04:59 Dose: 10 ml Guaifenesin/Codeine Phosphate (Robitussin Ac) 10 ml PO Q6H [facility] Last Admin: 02/20/18 10:53 Dose: 10 ml Azithromycin 500 mg/ Sodium (Chloride) 250 mls @ 250 mls/hr IV Q24H [facility] Stop: 02/22/18 06:59 Last Admin: 02/21/18 05:22 Dose: 250 mls/hr Ceftriaxone Sodium 1 gm/ (Sodium Chloride) 50 mls @ 200 mls/hr IV Q24H [facility] Stop: 02/27/18 05:31 Last Admin: 02/20/18 08:30 Dose: Not Given Sodium Chloride (Normal Saline) 1,000 mls @ 125 mls/hr IV ASDIRECTED [facility] Sodium Chloride (Normal Saline) Confirm Administered Dose 250 mls @ as directed .ROUTE .STK-MED ONE Stop: 02/20/18 06:33 Last Admin: 02/20/18 06:45 Dose: Not Given Lorazepam (Ativan) 1 mg IVPUSH ONETIME ONE Stop: 02/20/18 04:15 Last Admin: 02/20/18 04:59 Dose: 1 mg Methylprednisolone Sodium Succinate (Solu-Medrol) 125 mg IVPUSH ONETIME ONE Stop: 02/20/18 02:50 Last Admin: 02/20/18 03:00 Dose: 125 mg Methylprednisolone Sodium Succinate (Solu-Medrol) 62.5 mg IV Q6H [facility] Last Admin: 02/21/18 08:35 Dose: 62.5 mg - Exam Quality Assessment: Supplemental Oxygen, DVT Prophylaxis General: Alert, Oriented, Cooperative, Mild Distress Lungs: Decreased Breath Sounds, Rhonchi, Wheezing. No: Rales, Rub Cardiovascular: Regular Rate, Regular Rhythm, No Murmurs GI/Abdominal Exam: Soft, Non-Tender, No Organomegaly, No Distention Extremities: Non-Tender, No Pedal Edema Skin: Warm, Dry, Intact - Problem List Review Problem List Initiated/Reviewed/Updated: Yes - My Orders Last 24 Hours: My Active Orders 02/20/18 12:04 Benzonatate [Tessalon Perles] 200 mg PO TID PRN Codeine/guaiFENesin [Robitussin AC] 10 ml PO Q4H PRN Convert IV to Saline Lock [OM.PC] Routine 02/21/18 12:15 methylPREDNISolone Sod Succ [Solu-MEDROL] 40 mg IV Q8H - Plan Plan:: ASSESSMENT / PLAN COPD with exacerbatiion secondary to bronchitis -Saline lock IV -IV Antibiotic: Zithromax 500 gram IV every 24 hours -IV Antibiotic: Rocephin 1 gm IV every 24 hours -IV Solumederol 40mg every 8 hours -Robitussin AC 10 ml every 4 hours as needed for cough -Tessalon pearls 200 mg by mouth 3 times a day when necessary -albuterol nebulizer every 4 hours as needed for wheezing and cough -Duo nebu ; schedule nebulize every 6 hours -IS every 1 hour while awake Acute on chronic hypoxic respiratory failure -Secondary to bronchitis and COPD exacerbation Tobacco Dependence, quit -quit smoking x 13 days -decline nicotine patches or pill Maintenance issues -Orders home meds: -Nutrition: regular diet -Churchill catheter not indicated at this time -DVT: Lovenox 40 mg subcut -PPI: po Protonix 40mg daily CODE STATUS: FULL CODE Admission status: Admit to [address] [place] [address] Admission justification. This patient will be admitted for inpatient services and is medically appropriate meeting medical necessity for inpatient admission as outlined in my documentation. I reasonably expect the patient will require inpatient services that span. Time over 2 midnights. I reasonably expect this patient to be discharged or transferred within 96 hours after admission to the [facility]. Disposition: home Primary care provider: Dr. Vásquez Hospitalist: Dr. Patten
[2018-02-21] MEDS: Ibuprofen 600 MG Tab PO PRN (14:24)
[2018-02-21] MEDS: methylPREDNISolone Sodium Succinate 40 MG/1 ML SDV IVPUSH SCH (15:49)
[2018-02-21] MEDS: Gabapentin 300 MG Cap PO SCH (20:25)
[2018-02-21] MEDS: atorvaSTATin 10 MG Tab PO SCH (20:25)
[2018-02-22] MEDS: methylPREDNISolone Sodium Succinate 40 MG/1 ML SDV IVPUSH SCH ×2 (00:11→07:34)
[2018-02-22] MEDS ORDERED: Azithromycin 500 MG in Sodium Chloride 0.9% 250 ML IV SCH (06:00)
[2018-02-22] MEDS: Albuterol 0.083% 2.5 MG/3 ML Neb Soln NEB PRN (06:07)
[2018-02-22] MEDS: Codeine/guaiFENesin 100mg-10 MG/5 ML Syrup 10 ML Cup PO PRN (06:08)
[2018-02-22] MEDS: Albuterol/Ipratropium 3.0-0.5 MG/3 ML Neb Soln NEB SCH ×2 (07:26→10:15)
[2018-02-22] MEDS: Pantoprazole 40 MG Tab.CR PO SCH (07:34)
[2018-02-22 07:44] VITALS: BP 112/68
[2018-02-22] MEDS: cefTRIAXone 1 GM in Sodium Chloride 0.9% 50 ML IV SCH (08:11)
[2018-02-22] MEDS: FLUoxetine 20 MG Cap PO SCH (08:11)
[2018-02-22] MEDS: Enoxaparin 40 MG/0.4 ML Syringe SUBCUT SCH (08:11)
[2018-02-22] MEDS: buPROPion 150 MG Tab.ER PO SCH (08:11)
--- NOTE | 2018-02-22 12:31 | PCM.DCSUM1 ---
Discharge Summary - Hospital Course Brief History: Ms. Lynn is a 62-year-old woman who was admitted through the emergency department with hypoxia and shortness of breath secondary to COPD exacerbation with bronchitis - Discharge Data Discharge Date: 02/22/18 Discharge Disposition: Home, Self-Care 01 Condition: Stable - Discharge Diagnosis/Problem(s) (1) Bronchitis SNOMED Code(s): 78752093 ICD Code: J40 - BRONCHITIS, NOT SPECIFIED ACUTE OR CHRONIC Status: Acute Current Visit: Yes (2) COPD with acute exacerbation SNOMED Code(s): 453451326 ICD Code: J44.1 - CHRONIC OBSTRUCTIVE PULMONARY DISEASE W (ACUTE) EXACERBATION Status: Acute Priority: High Current Visit: Yes (3) Hypoxemia SNOMED Code(s): 289153508 ICD Code: R09.02 - HYPOXEMIA Status: Acute Current Visit: Yes (4) COPD (chronic obstructive pulmonary disease) SNOMED Code(s): 25006514 ICD Code: J44.9 - CHRONIC OBSTRUCTIVE PULMONARY DISEASE, UNSPECIFIED Status : Chronic Current Visit: No - Patient Summary/Data Consults: Consultations 02/20/18 05:22 Respiratory Care Assess and Treatment [CONS] Routine Comment: Physician Instructions: Hospital Course: Ms. Duarte is a 62-year-old woman with a known history of COPD, requiring oxygen use at night. She was seen a week ago with "bronchitis" and started on an antibiotic. She stopped smoking 12 days ago. She's had no fevers or chills, she's had worsening shortness of breath and wheezing despite the antibiotic. She is not on any steroids. Nasal cannula oxygen does help but she cannot do anything without oxygen and is short of breath even with the oxygen which is much worse than her baseline. She has marked audible wheezing and moderate increased respiratory rate. She arrived to the emergency room with an O2 saturation of 79% on room air. She has a persistent very tight cough, it is nonproductive. She was admitted to the hospital and given IV fluids for hydration as well as IV antibiotic therapy with Rocephin and azithromycin and IV Solu-Medrol. Over the next few days of her hospital stay she gradually improved and was able to walk short distances without severe shortness of breath. She continued to require supplemental oxygen, on the day of discharge at rest she had oxygen saturation of 87% on room air. Cough had significantly improved and on exam was moving air much better. She will be off work for an additional week to recover from this exacerbation and will be supplied with continuous oxygen at home. She will receive an additional 3 days of oral antibiotic therapy with doxycycline as well as 3 days of prednisone 40 mg daily. Activity will be as tolerated and she will resume her usual diet. Follow-up appointment will be scheduled with primary care provider within one week. She is encouraged to remain abstinent from tobacco use, at this time refuses prescriptions for nicotinic patch or gum. She will be enrolled in pulmonary rehabilitation to hopefully improve her exercise tolerance. - Patient Instructions Diet: Usual Diet as Tolerated Activity: As Tolerated Activity, Other: Off work until March 01 Other/Special Instructions: Please schedule follow-up appointment with primary care provider within one week. Please arrange for home oxygen 2 L/m via nasal cannula continuous. Please schedule pulmonary rehabilitation consult and follow- up. - Discharge Plan Prescriptions/Med Rec: Albuterol/Ipratropium [DuoNeb 3.0-0.5 MG/3 ML] 3 ml NEB Q4H PRN #120 neb PRN Reason: Dyspnea Doxycycline [Vibramycin] 100 mg PO DAILY #6 cap predniSONE [Prednisone] 40 mg PO DAILY #6 tablet Home Medications: Home Meds Albuterol [Ventolin HFA] 1 - 2 puff INH QID 09/14/13 [History] FLUoxetine HCl [Fluoxetine] 40 mg PO DAILY 11/10/13 [History] Acetaminophen [Acetaminophen 8 Hour] 650 mg PO Q6HR PRN 04/03/14 [History] Cyclobenzaprine [Flexeril] 10 mg PO TID PRN 04/03/14 [History] Albuterol/Ipratropium [Combivent] 1 puff INH Q6H PRN 10/02/17 [History] Albuterol/Ipratropium [DuoNeb 3.0-0.5 MG/3 ML] 3 ml INH Q4H PRN 10/02/17 [ History] Fluticasone/Vilanterol [Breo Ellipta 100-25 MCG Inhalation Kit] 1 puff INH DAILY 10/02/17 [History] Gabapentin [Neurontin] 1 cap PO BEDTIME 10/02/17 [History] Ibuprofen [Motrin] 1 tab PO Q6H PRN 10/02/17 [History] Lutein 1 tab PO DAILY 10/02/17 [History] Nicotine [Nicotrol] 1 puff INH Q2HR 10/02/17 [History] Ranitidine [Zantac] 1 tab PO BID 10/02/17 [History] SUMAtriptan [Imitrex] 1 tab PO ASDIRECTED PRN 10/02/17 [History] atorvaSTATin [Lipitor] 1 tab PO BEDTIME 10/02/17 [History] buPROPion [Wellbutrin XL] 1 tab PO DAILY 10/02/17 [History] Albuterol/Ipratropium [DuoNeb 3.0-0.5 MG/3 ML] 3 ml NEB Q4H PRN #120 neb [Rx] Doxycycline [Vibramycin] 100 mg PO DAILY #6 cap 02/22/18 [Rx] predniSONE [Prednisone] 40 mg PO DAILY #6 tablet 02/22/18 [Rx] Referrals: Jessica Fonseca RN [Ordering Only Provider] - Winsome Vásquez CNM [Mid-] - - Patient Data Vitals - Most Recent: Last Vital Signs Temp 96.6 F 02/22/18 07:41 Pulse 102 H 02/22/18 10:15 Resp 18 02/22/18 07:41 BP 112/68 02/22/18 07:41 Pulse Ox 88 L 02/22/18 10:50 Weight - Most Recent: 171 lb 8.314 oz I&O - Last 24 hours: Intake & Output 02/21/18 02/22/18 02/22/18 22:59 06:59 14:59 Intake Total 290 250 240 Balance 290 250 240 VICTORIA Results - Last 24 hrs: Microbiology 02/20/18 03:38 Gram Stain - Final Sputum - Expectorated Respiratory Culture - Final NORMAL RESPIRATORY PAGE 2 DAYS Med Orders - Current: Current Medications Acetaminophen (Tylenol) 650 mg PO Q4H PRN PRN Reason: Pain (Mild 1-3)/fever Last Admin: 02/20/18 20:27 Dose: 650 mg Albuterol (Proventil Neb Soln) 2.5 mg NEB Q4H PRN PRN Reason: Shortness Of Breath/wheezing Last Admin: 02/22/18 06:07 Dose: 2.5 mg Albuterol/Ipratropium (Duoneb 3.0-0.5 Mg/3 Ml) 3 ml NEB QIDRT [facility] Last Admin: 02/22/18 10:15 Dose: 3 ml Atorvastatin Calcium (Lipitor) 10 mg PO BEDTIME [facility] Last Admin: 02/21/18 20:25 Dose: 10 mg Benzonatate (Tessalon Perles) 200 mg PO TID PRN PRN Reason: Cough Last Admin: 02/21/18 05:21 Dose: 200 mg Bisacodyl (Dulcolax) 5 mg PO DAILY PRN PRN Reason: Constipation Bupropion HCl (Wellbutrin Xl) 300 mg PO DAILY [facility] Last Admin: 02/22/18 08:11 Dose: 300 mg Cyclobenzaprine HCl (Flexeril) 10 mg PO TID PRN PRN Reason: Muscle Spasm Docusate Sodium (Colace) 100 mg PO BID PRN PRN Reason: Constipation Enoxaparin Sodium (Lovenox) 40 mg SUBCUT DAILY [facility] Last Admin: 02/22/18 08:11 Dose: 40 mg Fluoxetine HCl (Prozac) 40 mg PO DAILY [facility] Last Admin: 02/22/18 08:11 Dose: 40 mg Gabapentin (Neurontin) 300 mg PO BEDTIME [facility] Last Admin: 02/21/18 20:25 Dose: 300 mg Guaifenesin/Codeine Phosphate (Robitussin Ac) 10 ml PO Q4H PRN PRN Reason: Cough Last Admin: 02/22/18 06:08 Dose: 10 ml Ceftriaxone Sodium 1 gm/ (Sodium Chloride) 50 mls @ 200 mls/hr IV Q24H [facility] Stop: 02/27/18 10:30 Last Admin: 02/22/18 08:11 Dose: 200 mls/hr Ibuprofen (Motrin) 600 mg PO Q6H PRN PRN Reason: Pain/Fever Last Admin: 02/21/18 14:24 Dose: 600 mg Lorazepam (Ativan) 1 mg IV Q6H PRN PRN Reason: Nausea/Vomiting Melatonin (Melatonin) 6 mg PO BEDTIME PRN PRN Reason: Insomnia Methylprednisolone Sodium Succinate (Solu-Medrol) 40 mg IVPUSH Q8H [facility] Last Admin: 02/22/18 07:34 Dose: 40 mg Morphine Sulfate (Morphine) 2 mg IVPUSH Q2H PRN PRN Reason: Pain (severe 7-10) Ondansetron HCl (Zofran Odt) 4 mg PO Q6H PRN PRN Reason: Nausea able to take PO Ondansetron HCl (Zofran) 4 mg IV Q4H PRN PRN Reason: Nausea/Vomiting Oxycodone HCl (Oxycodone) 5 mg PO Q4H PRN PRN Reason: Pain (moderate 4-6) Pantoprazole Sodium (Protonix) 40 mg PO ACBREAKFAST [facility] Last Admin: 02/22/18 07:34 Dose: 40 mg Senna/Docusate Sodium (Senna Plus) 1 tab PO BID PRN PRN Reason: Constipation Zolpidem Tartrate (Ambien) 5 mg PO BEDTIME PRN PRN Reason: Sleep Discontinued Medications Albuterol (Proventil Neb Soln) 2.5 mg NEB ONETIME ONE Stop: 02/20/18 03:49 Last Admin: 02/20/18 03:52 Dose: 2.5 mg Albuterol/Ipratropium (Duoneb 3.0-0.5 Mg/3 Ml) 3 ml NEB ONETIME ONE Stop: 02/20/18 02:50 Last Admin: 02/20/18 03:00 Dose: 3 ml Guaifenesin/Codeine Phosphate (Robitussin Ac) 10 ml PO Q6H [facility] Last Admin: 02/20/18 04:59 Dose: 10 ml Guaifenesin/Codeine Phosphate (Robitussin Ac) 10 ml PO Q6H [facility] Last Admin: 02/20/18 10:53 Dose: 10 ml Azithromycin 500 mg/ Sodium (Chloride) 250 mls @ 250 mls/hr IV Q24H [facility] Stop: 02/22/18 06:59 Last Admin: 02/21/18 05:22 Dose: 250 mls/hr Ceftriaxone Sodium 1 gm/ (Sodium Chloride) 50 mls @ 200 mls/hr IV Q24H [facility] Stop: 02/27/18 05:31 Last Admin: 02/20/18 08:30 Dose: Not Given Sodium Chloride (Normal Saline) 1,000 mls @ 125 mls/hr IV ASDIRECTED [facility] Sodium Chloride (Normal Saline) Confirm Administered Dose 250 mls @ as directed .ROUTE .STK-MED ONE Stop: 02/20/18 06:33 Last Admin: 02/20/18 06:45 Dose: Not Given Azithromycin 500 mg/ Sodium (Chloride) 250 mls @ 250 mls/hr IV Q24H [facility] Stop: 02/22/18 06:59 Last Admin: 02/22/18 05:58 Dose: 250 mls/hr Lorazepam (Ativan) 1 mg IVPUSH ONETIME ONE Stop: 02/20/18 04:15 Last Admin: 02/20/18 04:59 Dose: 1 mg Methylprednisolone Sodium Succinate (Solu-Medrol) 125 mg IVPUSH ONETIME ONE Stop: 02/20/18 02:50 Last Admin: 02/20/18 03:00 Dose: 125 mg Methylprednisolone Sodium Succinate (Solu-Medrol) 62.5 mg IV Q6H [facility] Last Admin: 02/21/18 08:35 Dose: 62.5 mg - Exam General: Reports: Alert, Oriented, Cooperative, Mild Distress Lungs: Reports: Normal Respiratory Effort, Decreased Breath Sounds, Wheezing. Denies: Rales, Rhonchi, Rub Cardiovascular: Reports: Regular Rate, Regular Rhythm, No Murmurs GI/Abdominal Exam: Soft, Non-Tender, No Organomegaly, No Distention Extremities: Non-Tender, No Pedal Edema Skin: Reports: Warm, Dry
== END 2018-02-22 13:53 | disposition home or self-care (01) | DRG 190 ==
LOC: JP.ED 02:41 → JP.MS 04:15
PROVIDERS: ADMIT Hospitalist; ATTEND Hospitalist
DX: J44.0 Chronic obstructive pulmonary disease with (acute) lower respiratory infection (principal); J96.21 Acute and chronic respiratory failure with hypoxia; J20.9 Acute bronchitis, unspecified; J44.1 Chronic obstructive pulmonary disease with (acute) exacerbation; Z99.81 Dependence on supplemental oxygen; Z87.891 Personal history of nicotine dependence; F32.9 Major depressive disorder, single episode, unspecified; G43.909 Migraine, unspecified, not intractable, without status migrainosus; Z79.52 Long term (current) use of systemic steroids
CPT/HCPCS: 36415; 36600; 71046; 71046-26; 80048; 82803; 85025; 87070; 87205; 94640; 94762; 96374; 99285-25; A9270-GY; J0456; J0696; J1650; J2060; J2920; J2930; J7030; J7050; J7620

== ENCOUNTER 2018-04-09 17:16 | Emergency (ER) | payer MEDICAID ==
[2018-04-09 17:38] VITALS: BP 160/116
[2018-04-09] MEDS ORDERED: Sodium Chloride 0.9% 10 ML Syringe FLUSH PRN (17:48)
[2018-04-09] MEDS ORDERED: methylPREDNISolone Sodium Succinate 125 MG/2 ML SDV IVPUSH ONE (17:50)
[2018-04-09] MEDS ORDERED: Albuterol/Ipratropium 3.0-0.5 MG/3 ML Neb Soln NEB ONE ×2 (17:50→18:03)
--- NOTE | 2018-04-09 18:09 | EDM.PDOC ---
ED HPI GENERAL MEDICAL PROBLEM - General Chief Complaint: Respiratory Problem Stated Complaint: TROUBLE BREATHING Time Seen by Provider: 04/09/18 17:34 Source of Information: Reports: Patient History Limitations: Reports: No Limitations - History of Present Illness INITIAL COMMENTS - FREE TEXT/NARRATIVE: Hx of COPD and emphysema; states she has been not feeling well for the last week ; she denies fever but is SOB with pleuritic cp. She did a nebulizer before work today and then became much more sob as the day progressed. Onset: Gradual. No: Today Duration: Day(s): (last week has been coming on) Location: Reports: Chest Quality: Reports: Pressure Severity: Moderate Improves with: Reports: None Worsens with: Reports: Movement Associated Symptoms: Reports: Cough, Shortness of Breath - Related Data Allergies Allergy/AdvReac Type Severity Reaction Status Date / Time No Known Allergies Allergy Verified 04/09/18 17:45 Home Meds: Home Meds Albuterol [Ventolin HFA] 1 - 2 puff INH QID 09/14/13 [History] FLUoxetine HCl [Fluoxetine] 40 mg PO DAILY 11/10/13 [History] Acetaminophen [Acetaminophen 8 Hour] 650 mg PO Q6HR PRN 04/03/14 [History] Cyclobenzaprine [Flexeril] 10 mg PO TID PRN 04/03/14 [History] Albuterol/Ipratropium [Combivent] 1 puff INH Q6H PRN 10/02/17 [History] Albuterol/Ipratropium [DuoNeb 3.0-0.5 MG/3 ML] 3 ml INH Q4H PRN 10/02/17 [ History] Fluticasone/Vilanterol [Breo Ellipta 100-25 MCG Inhalation Kit] 1 puff INH DAILY 10/02/17 [History] Gabapentin [Neurontin] 1 cap PO BEDTIME 10/02/17 [History] Ibuprofen [Motrin] 1 tab PO Q6H PRN 10/02/17 [History] Lutein 1 tab PO DAILY 10/02/17 [History] Nicotine [Nicotrol] 1 puff INH Q2HR 10/02/17 [History] Ranitidine [Zantac] 1 tab PO BID 10/02/17 [History] SUMAtriptan [Imitrex] 1 tab PO ASDIRECTED PRN 10/02/17 [History] atorvaSTATin [Lipitor] 1 tab PO BEDTIME 10/02/17 [History] buPROPion [Wellbutrin XL] 1 tab PO DAILY 10/02/17 [History] Albuterol/Ipratropium [DuoNeb 3.0-0.5 MG/3 ML] 3 ml NEB Q4H PRN #120 neb [Rx] Doxycycline [Vibramycin] 100 mg PO DAILY #6 cap 02/22/18 [Rx] predniSONE [Prednisone] 40 mg PO DAILY #6 tablet 02/22/18 [Rx] Past Medical History HEENT History: Reports: Cataract Respiratory History: Reports: Bronchitis, Recurrent, COPD Musculoskeletal History: Reports: Arthritis, Other (See Below) Other Musculoskeletal History: bilateral shoulder dislocation Neurological History: Reports: Migraines Psychiatric History: Reports: Depression - Infectious Disease History Infectious Disease History: Reports: Chicken Pox, Mumps - Past Surgical History HEENT Surgical History: Reports: Tonsillectomy Female Surgical History: Reports: Tubal Ligation Social & Family History - Family History Family Medical History: Noncontributory - Tobacco Use Smoking Status *Q: Former Smoker Used Tobacco, but Quit: Yes Month/Year Tobacco Last Used: 01/2018 - Caffeine Use Caffeine Use: Reports: Coffee, Tea Other Caffeine Use: 2 pots a day with 1/2 pot of tea daily - Recreational Drug Use Recreational Drug Use: No - Living Situation & Occupation Living situation: Reports: Single Occupation: Employed (lives in [place], [place]. employed by [employer]. has one child) ED ROS GENERAL - Review of Systems Review Of Systems: See Below Constitutional: Reports: Fatigue Respiratory: Reports: Shortness of Breath, Pleuritic Chest Pain, Cough Cardiovascular: Reports: No Symptoms GI/Abdominal: Reports: No Symptoms : Reports: No Symptoms Musculoskeletal: Reports: No Symptoms Skin: Reports: No Symptoms Neurological: Reports: No Symptoms Psychiatric: Reports: No Symptoms ED EXAM, GENERAL - Physical Exam Exam: See Below Exam Limited By: No Limitations General Appearance: Alert, WD/WN, No Apparent Distress Head: Atraumatic, Normocephalic Neck: Full Range of Motion Respiratory/Chest: Decreased Breath Sounds, Rhonchi, Wheezing, Accessory Muscle Use Cardiovascular: Regular Rate, Rhythm GI/Abdominal: Normal Bowel Sounds Back Exam: Full Range of Motion Extremities: Normal Range of Motion Neurological: Alert, Oriented, CN II-XII Intact, Normal Cognition Psychiatric: Normal Affect, Normal Mood Skin Exam: Warm, Dry, No Rash Course - Vital Signs Last Recorded V/S: Last Vital Signs Temp 97.6 F 04/09/18 17:44 Pulse 116 H 04/09/18 17:44 Resp 22 H 04/09/18 17:44 BP 160/116 H 04/09/18 17:44 Pulse Ox 94 L 04/09/18 17:44 - Orders/Labs/Meds Orders: Active Orders 24 hr Category Date Time Status Oxygen Therapy, ED [RC] ASDIRECTED Care 04/09/18 17:49 Active Peripheral IV Care [RC] . DIRECTED Care 04/09/18 17:49 Active RT Aerosol Therapy [RC] ASDIRECTED Care 04/09/18 17:50 Active RT Aerosol Therapy [RC] ASDIRECTED Care 04/09/18 18:03 Active RT Aerosol Therapy [RC] ASDIRECTED Care 04/09/18 18:45 Active Chest 1V Frontal [CR] Stat Exams 04/09/18 17:49 Taken Sodium Chloride 0.9% [Saline Flush] Med 04/09/18 17:48 Active 10 ml FLUSH ASDIRECTED PRN Peripheral IV Insertion Adult [OM.PC] Stat Oth 04/09/18 17:49 Ordered Medication Orders Sodium Chloride (Saline Flush) 10 ml FLUSH ASDIRECTED PRN PRN Reason: Keep Vein Open Last Admin: 04/09/18 18:03 Dose: 10 ml Labs: Laboratory Tests 04/09/18 04/09/18 Range/Units 18:00 18:00 WBC 8.2 (4.5-11.0) K/uL RBC 4.35 (3.30-5.50) M/uL Hgb 12.8 (12.0-15.0) g/dL Hct 39.7 (36.0-48.0) % MCV 91 (80-98) fL MCH 29 (27-31) pg MCHC 32 (32-36) % Plt Count 375 (150-400) K/uL Neut % (Auto) 37 (36-66) % Lymph % (Auto) 30 (24-44) % [place] % (Auto) 14 H (2-6) % Eos % (Auto) 17 H (2-4) % Baso % (Auto) 2 H (0-1) % Sodium 139 L (140-148) mmol/L Potassium 4.1 (3.6-5.2) mmol/L Chloride 102 (100-108) mmol/L Carbon Dioxide 26 (21-32) mmol/L Anion Gap 15.1 H (5.0-14.0) mmol/L BUN 8 (7-18) mg/dL Creatinine 0.9 (0.6-1.0) mg/dL Est Cr Clr Drug Dosing 62.23 mL/min Estimated GFR (MDRD) > 60 (>60) Glucose 100 (74-106) mg/dL Calcium 8.8 (8.5-10.1) mg/dL Total Bilirubin 0.3 (0.2-1.0) mg/dL AST 38 H (15-37) U/L ALT 71 D (12-78) U/L Alkaline Phosphatase 222 H (46-116) U/L Troponin I < 0.017 (0.000-0.056) ng/mL Total Protein 7.3 (6.4-8.2) g/dL Albumin 3.6 (3.4-5.0) g/dL Globulin 3.7 H (2.3-3.5) g/dL Albumin/Globulin Ratio 1.0 L (1.2-2.2) Meds: Medications Generic Name Dose Route Start Last Admin Trade Name Freq PRN Reason Stop Dose Admin Sodium Chloride 10 ml 04/09/18 17:48 04/09/18 18:03 Saline Flush FLUSH 10 ml ASDIRECTED PRN Administration Keep Vein Open Discontinued Medications Generic Name Dose Route Start Last Admin Trade Name Freq PRN Reason Stop Dose Admin Albuterol 2.5 mg 04/09/18 18:45 04/09/18 18:54 Proventil Neb Soln NEB 04/09/18 18:46 2.5 mg ONETIME ONE Administration Albuterol/Ipratropium 3 ml 04/09/18 17:50 04/09/18 17:56 Duoneb 3.0-0.5 Mg/3 Ml NEB 04/09/18 17:51 3 ml ONETIME ONE Administration Albuterol/Ipratropium 3 ml 04/09/18 18:03 04/09/18 18:06 Duoneb 3.0-0.5 Mg/3 Ml NEB 04/09/18 18:04 3 ml ONETIME ONE Administration Methylprednisolone Sodium Succinate 125 mg 04/09/18 17:50 04/09/18 18:02 Solu-Medrol IVPUSH 04/09/18 17:51 125 mg ONETIME ONE Administration - Re-Assessments/Exams Free Text/Narrative Re-Assessment/Exam: 04/09/18 18:54 Following two nebulizers, patient is doing much better. She denies fever. Is feeling improved. Free Text/Narrative Re-Assessment/Exam: 04/09/18 19:10 she is doing much better; lungs sounds improved; decreased wob Oxygen is 91-92%, heart rate is in the 90's 04/09/18 19:49 She is feeling better Offered admission for a day or so; she declines Understands things can get worse. Will return with concerns. Departure - Departure Time of Disposition: 19:50 Disposition: Home, Self-Care 01 Condition: Fair Clinical Impression: COPD with exacerbation, COPD exacerbation - Discharge Information Instructions: Chronic Obstructive Pulmonary Disease Referrals: Winsome Vásquez CNM [Primary Care Provider] - Forms: ED Department Discharge Additional Instructions: Home, rest, push fluids Take your medications as prescribed If your breathing gets worse, return to the ER. Please follow up with your pcp within the week. If you smoke, consider stopping. - My Orders Last 24 Hours: My Active Orders 04/09/18 17:48 Sodium Chloride 0.9% [Saline Flush] 10 ml FLUSH ASDIRECTED PRN 04/09/18 17:49 Oxygen Therapy, ED [RC] ASDIRECTED Peripheral IV Care [RC] . DIRECTED Chest 1V Frontal [CR] Stat Peripheral IV Insertion Adult [OM.PC] Stat 04/09/18 17:50 RT Aerosol Therapy [RC] ASDIRECTED 04/09/18 18:03 RT Aerosol Therapy [RC] ASDIRECTED 04/09/18 18:45 RT Aerosol Therapy [RC] ASDIRECTED - Assessment/Plan Last 24 Hours: My Active Orders 04/09/18 17:48 Sodium Chloride 0.9% [Saline Flush] 10 ml FLUSH ASDIRECTED PRN 04/09/18 17:49 Oxygen Therapy, ED [RC] ASDIRECTED Peripheral IV Care [RC] . DIRECTED Chest 1V Frontal [CR] Stat Peripheral IV Insertion Adult [OM.PC] Stat 04/09/18 17:50 RT Aerosol Therapy [RC] ASDIRECTED 04/09/18 18:03 RT Aerosol Therapy [RC] ASDIRECTED 04/09/18 18:45 RT Aerosol Therapy [RC] ASDIRECTED
[2018-04-09] MEDS ORDERED: Albuterol 0.083% 2.5 MG/3 ML Neb Soln NEB ONE (18:45)
--- NOTE | 2018-04-11 10:22 | CR ---
Chest 1V Frontal INDICATION: sob COMPARISON: 02/20/2018 FINDINGS: AP portable chest. Heart size normal. Lungs hyperinflated. No new infiltrates or signs of pulmonary edema. No definite p leural effusion.
== END 2018-04-09 20:16 | disposition home or self-care (01) ==
LOC: JP.ED 17:16
DX: J44.1 Chronic obstructive pulmonary disease with (acute) exacerbation (principal); Z87.891 Personal history of nicotine dependence; F32.9 Major depressive disorder, single episode, unspecified; Z79.899 Other long term (current) drug therapy
CPT/HCPCS: 36415; 71045; 80053; 84484; 85025; 94640; 96374; 99284; J2930; J7050; J7620

== ENCOUNTER 2019-02-04 05:41 | Day surgery (SDC) | payer MEDICAID ==
[2019-02-04] MEDS ORDERED: Albuterol/Ipratropium 3.0-0.5 MG/3 ML Neb Soln NEB ONE (06:30)
[2019-02-04] MEDS ORDERED: Dextrose 5%-Lactated Ringers 1,000 ML IV SCH (06:30)
[2019-02-04] MEDS ORDERED: Midazolam 1 MG/ML 2 ML SDV ONE (07:29)
[2019-02-04] MEDS ORDERED: Propofol 200 MG/20 ML SDV ONE ×2 (07:29→08:36)
[2019-02-04] MEDS ORDERED: fentaNYL 100 MCG/2 ML SDV ONE (07:29)
[2019-02-04 09:56] VITALS: BP 105/68
--- NOTE | 2019-02-10 12:50 | OR ---
DATE OF PROCEDURE: 02/04/2019 PREOPERATIVE DIAGNOSIS: History of colon polyps with indication for current screening colonoscopy. POSTOPERATIVE DIAGNOSIS: Normal colonoscopic examination. OPERATIVE PROCEDURE: Flexible colonoscopy. ANESTHESIA: IV sedation. INDICATION FOR PROCEDURE: This is a 63-year-old, presenting for a screening colonoscopy. She does have history of previous colon polyps being removed. Plan is to proceed with colonoscopy with biopsies and/or polypectomy as indicated. Potential risks including bleeding and perforation were discussed, and the patient wishes to proceed. DETAILS OF PROCEDURE: The patient was taken to the operating room and placed in a left lateral decubitus position. IV sedation was administered, after which the initial digital rectal exam was performed that was unremarkable. Colonoscope was then passed into the level of the rectum with retroflexion revealing uncomplicated hemorrhoidal columns. Scope was eventually passed to the level of the cecum. The prep was fairly good. There were some scattered fragments of solid stool and some liquid stool, but the vast majority of the mucosal surfaces were well seen. To that level, no abnormalities were noted, specifically no diverticula. No areas of colitis and no recurrent polyps or other signs of neoplasia. Scope was then withdrawn, the above findings reconfirmed, and the procedure was concluded. The patient was taken to the recovery room in satisfactory condition. Given the patient's history of polyps, I recommend a followup screening colonoscopy should be performed in 5 years. Fab Israel MD /[id number]
== END 2019-02-04 10:04 | disposition home or self-care (01) ==
LOC: JP.SDS 05:41
PROVIDERS: ATTEND Surgery
DX: Z12.11 Encounter for screening for malignant neoplasm of colon (principal); K64.9 Unspecified hemorrhoids; K21.9 Gastro-esophageal reflux disease without esophagitis; I25.10 Atherosclerotic heart disease of native coronary artery without angina pectoris; E78.00 Pure hypercholesterolemia, unspecified; J44.9 Chronic obstructive pulmonary disease, unspecified; F17.200 Nicotine dependence, unspecified, uncomplicated; Z86.010 Personal history of colon polyps
CPT/HCPCS: 45378; 94640; J2250; J2704; J3010; J7042; J7620-GY